=== PATIENT | female | born 2000 | race Caucasian/White ===

== ENCOUNTER 2019-08-21 11:59 | Emergency (ER) | payer OTHER ==
[2019-08-21 12:05] VITALS: BP 151/73
--- NOTE | 2019-08-21 12:07 | ER Document Report ---
ED Medical Screen (RME) - General Chief Complaint: Breast Injury Stated Complaint: RIGHT BREAST INJURY Time Seen by Provider: 08/21/19 12:06 - HPI Notes: 08/21/19 12:07 Patient is a 19-year-old female who presents complaining of right nipple ring getting caught in the shower and getting partially stuck inside of the nipple. I have treated and performed a rapid initial assessment of this patient. A comprehensive ED assessment and evaluation of the patient, analysis of test results and completion of medical decision making process will be conducted by additional ED providers. PHYSICAL EXAMINATION: GENERAL: Well-appearing, well-nourished and in no acute distress. A&Ox4. Answers questions appropriately. - Related Data Allergies/Adverse Reactions: No Known Allergies Allergy (Verified 08/21/19 12:05) Physical Exam - Vital signs Vitals: Temp Pulse Resp BP Pulse Ox 98.7 F 105 H 18 151/73 H 100 08/21/19 12:04 08/21/19 12:04 08/21/19 12:04 08/21/19 12:04 08/21/19 12:04 Course - Vital Signs Vital signs: Temp Pulse Resp BP Pulse Ox 98.7 F 105 H 18 151/73 H 100 08/21/19 12:04 08/21/19 12:04 08/21/19 12:04 08/21/19 12:04 08/21/19 12:04
--- NOTE | 2019-08-21 13:14 | ER Document Report ---
HPI - HPI Patient complains to provider of: Nipple injury Time Seen by Provider: 08/21/19 12:06 Onset: This morning Onset/Duration: Sudden Quality of pain: Achy Pain Level: 1 Context: Patient states that she was attempting to get out of the shower and close the door when her nipple piercing got caught. Patient states that the barbell is pulled mostly through the right nipple. Patient states she has had the piercings for over a year. Associated Symptoms: Other - Right nipple injury Exacerbated by: Denies Relieved by: Denies Similar symptoms previously: No Recently seen / treated by doctor: No - ROS ROS below otherwise negative: Yes Systems Reviewed and Negative: Yes All other systems reviewed and negative - CONSTITUTIONAL Constitutional: DENIES: Fever, Chills - GASTROINTESTINAL Gastrointestinal: REPORTS: Nausea - DERM Skin Color: Normal Notes: Barbell piercing pulled almost completely through right nipple. Past Medical History - General Information source: Patient - Social History Smoking Status: Never Smoker Frequency of alcohol use: None Drug Abuse: None Lives with: Spouse/Significant other Family History: Reviewed & Not Pertinent Patient has suicidal ideation: No Patient has homicidal ideation: No - Medical History Medical History: Other - Blood clotting disorder Past Surgical History: Reports: Hx Myringotomy Vertical Provider Document - CONSTITUTIONAL Agree With Documented VS: Yes Exam Limitations: No Limitations General Appearance: WD/WN, No Apparent Distress - HEENT HEENT: Atraumatic, Normocephalic - NECK Neck: Normal Inspection - RESPIRATORY Respiratory: No Respiratory Distress - MUSCULOSKELETAL/EXTREMETIES Musculoskeletal/Extremeties: MAEW - NEURO Level of Consciousness: Awake, Alert, Appropriate Motor/Sensory: No Motor Deficit - DERM Integumentary: Warm, Dry Notes: Patient with barbell nipple piercing partially pulled through the nipple. Small amount of blood noted on either side of piercing Course - Re-evaluation Re-evalutation: 08/21/19 13:11 After 0.2 mL's of lidocaine were injected into the piercing, piercing was gently pushed back through the opening. Patient tolerated well. Piercing was then removed by twisting of the ends of the barbell off. - Vital Signs Vital signs: Temp Pulse Resp BP Pulse Ox 98.7 F 105 H 18 151/73 H 100 08/21/19 12:04 08/21/19 12:04 08/21/19 12:04 08/21/19 12:04 08/21/19 12:04 Discharge - Discharge Clinical Impression: nipple piercing injury, Subcutaneous foreign body removed Condition: Stable Disposition: HOME, SELF-CARE Instructions: Cephalexin ([facility]), Removal of Subcutaneous Foreign Object ([facility]) Additional Instructions: Return immediately for any new or worsening symptoms Followup with your primary care provider, call tomorrow to make a followup appointment Keep wound clean and dry Prescriptions: Cephalexin Monohydrate [Keflex 500 mg Capsule] 500 mg PO Q6H 5 Days capsule Referrals: KELLIE BARRON MD [ACTIVE STAFF] - Follow up as needed
== END 2019-08-21 13:26 | disposition home or self-care (01) ==
LOC: ER 11:59
DX: S20.101A Unspecified superficial injuries of breast, right breast, initial encounter (principal); X58.XXXA Exposure to other specified factors, initial encounter
CPT/HCPCS: 99283

== ENCOUNTER 2019-12-16 10:43 | Emergency (ER) | payer OTHER ==
[2019-12-16 11:04] VITALS: BP 129/71
[2019-12-16] MEDS ORDERED: DEXAMETHASONE 4 MG TABLET PO ONE (12:00)
--- NOTE | 2019-12-16 12:03 | ER Document Report ---
HPI - HPI Time Seen by Provider: 12/16/19 11:54 Pain Level: 5 Context: CHIEF COMPLAINT: Sore throat HPI: 19-year-old female who is 11 weeks presenting for continued sore throat over the last several days. No definite fevers. Patient went to an urgent care 3 days ago was diagnosed with strep throat. Patient was placed on Augmentin. Patient states the throat felt a little worse today it is uncomfortable across the entire throat. She did not go back to the urgent care or call her [employer] HEL[employer]. Decided to come to the emergency department for evaluation. No voice change. No abdominal pain. ROS: See HPI - all other systems were reviewed and are otherwise negative Constitutional: no fever Eyes: no drainage, no blurred vision ENT: no runny nose, positive sore throat Cardiovascular: no chest pain Resp: no SOB, no cough GI: no vomiting, no diarrhea, no abdominal pain : no dysuria Integumentary: no rash Allergy: no hives Musculoskeletal: no extremity pain or swelling Neurological: no numbness/tingling, no weakness MEDICATIONS: I agree with the patient medications as charted by the RN. ALLERGIES: I agree with the allergies as charted by the RN. PAST MEDICAL HISTORY/PAST SURGICAL HISTORY: Reviewed and agree as charted by RN. SOCIAL HISTORY: Reviewed and agree as charted by RN. FAMILY HISTORY: No significant familial comorbid conditions directly related to patient complaint EXAM: Reviewed vital signs as charted by RN. CONSTITUTIONAL: Alert and oriented and responds appropriately to questions. Well-appearing; well-nourished, no acute distress HEAD: Normocephalic; atraumatic EYES: PERRL; Conjunctivae clear, sclerae non-icteric ENT: normal nose; no rhinorrhea; moist mucous membranes; moderate pharyngeal erythema, no uvula edema or deviation, positive bilateral tonsillar hypertrophy, phonation normal. No visible soft palate swelling NECK: Supple without meningismus; non-tender; positive cervical lymphadenopathy, no masses CARD: RRR; no murmurs, no clicks, no rubs, no gallops; symmetric distal pulses RESP: Normal chest excursion without splinting or tachypnea; breath sounds clear and equal bilaterally; no wheezes, no rhonchi, no rales, pulse oximetry ABD/GI: Normal bowel sounds; non-distended; soft, non-tender, no rebound, no guarding; no palpable organomegaly or masses. BACK: The back appears normal and is non-tender to palpation, there is no CVA tenderness EXT: Normal ROM in all joints; non-tender to palpation; no cyanosis, no effusions, no edema SKIN: Normal color for age and race; warm; dry; good turgor; no acute lesions noted NEURO: Moves all extremities equally; Motor and sensory function intact PSYCH: The patient's mood and manner are appropriate. Grooming and personal hygiene are appropriate. MDM: 19-year-old female 11 weeks with positive strep test 3 days ago on Augmentin. She does have bilateral tonsillar hypertrophy with exudate. She states she had strep throat and Geovanna as well treated with amoxicillin. She has no visible signs of peritonsillar abscess. Phonation is normal she is afebrile and not tachycardic. We will give a dose of Decadron here. Will check patient for mononucleosis - EENT EENT: REPORTS: Sore Throat - REPRODUCTIVE Reproductive: REPORTS: : Past Medical History - Social History Smoking Status: Never Smoker Chew tobacco use (# tins/day): No Frequency of alcohol use: None Drug Abuse: None Family History: Reviewed & Not Pertinent Patient has suicidal ideation: No Patient has homicidal ideation: No Past Surgical History: Reports: Hx Myringotomy Vertical Provider Document - INFECTION CONTROL TRAVEL OUTSIDE OF THE [place] IN LAST 30 DAYS: No Course - Re-evaluation Re-evalutation: 12/16/19 12:57 Patient is positive for mononucleosis. Will switch patient to Zithromax from Augmentin so she does not develop a rash. Symptomatic treatment follow-up with her [employer] - Vital Signs Vital signs: Temp Pulse Resp BP Pulse Ox 98.5 F 99 16 129/71 H 99 12/16/19 11:02 12/16/19 11:02 12/16/19 11:02 12/16/19 11:02 12/16/19 11:02 Discharge - Discharge Clinical Impression: Mononucleosis Qualifiers: Infectious mononucleosis etiology: unspecified organism Infectious mononucleosis complication: without complication Qualified Code(s): B27.90 - Infectious mononucleosis, unspecified without complication Pharyngitis Qualifiers: Pharyngitis/tonsillitis etiology: unspecified etiology Qualified Code(s): J02.9 - Acute pharyngitis, unspecified Condition: Stable Disposition: HOME, SELF-CARE Additional Instructions: Stop the Augmentin, start the Zithromax. Follow-up with your [employer]PER[employer] HELPER for further evaluation and treatment call for appointment Prescriptions: Azithromycin [Zithromax 250 mg Tablet] 250 mg PO ASDIR PRN #6 tablet PRN Reason:
== END 2019-12-16 13:12 | disposition home or self-care (01) ==
LOC: ER 10:43
DX: O26.891 Other specified pregnancy related conditions, first trimester (principal); B27.90 Infectious mononucleosis, unspecified without complication; J02.9 Acute pharyngitis, unspecified; Z3A.11 11 weeks gestation of pregnancy
CPT/HCPCS: 36415; 86308; J8540

== ENCOUNTER 2020-02-08 18:25 | Emergency (ER) | payer OTHER ==
[2020-02-08 18:31] VITALS: BP 153/74
--- NOTE | 2020-02-08 18:54 | ER Document Report ---
HPI - HPI Time Seen by Provider: 02/08/20 18:39 Pain Level: 5 Context: Patient is a 19 year old who presents emergency department with a chief complaint of bilateral leg swelling, redness, and pain. Patient states that she is allergic to sunscreen and 2 days ago she went walking outside and got sunburned. She has been using aloe, elevating her legs, but has not had relief of her symptoms. She has also been placing ice to her zheng. She is currently . - CONSTITUTIONAL Constitutional: DENIES: Fever, Chills - NEURO Neurology: DENIES: Headache, Weakness, Vision blurred, Dizzinesss / Vertigo - CARDIOVASCULAR Cardiovascular: DENIES: Chest pain - RESPIRATORY Respiratory: DENIES: Coughing - GASTROINTESTINAL Gastrointestinal: DENIES: Abdominal Pain, Nausea, Patient vomiting - REPRODUCTIVE Reproductive: REPORTS: : - MUSCULOSKELETAL Musculoskeletal: REPORTS: Extremity pain - Bilateral lower extremities, Swelling - Bilateral lower extremities - DERM Skin Color: Normal, Erythema - Bilateral lower extremities and right upper extremities Skin Problems: Blister - Left lower extremity Past Medical History - General Information source: Patient - Social History Smoking Status: Former Smoker Family History: Reviewed & Not Pertinent Patient has suicidal ideation: No Patient has homicidal ideation: No Past Surgical History: Reports: Hx Myringotomy Vertical Provider Document - CONSTITUTIONAL Agree With Documented VS: Yes Exam Limitations: No Limitations General Appearance: No Apparent Distress - INFECTION CONTROL TRAVEL OUTSIDE OF THE [place] IN LAST 30 DAYS: No - HEENT HEENT: Atraumatic, Normocephalic, PERRLA - RESPIRATORY Respiratory: Breath Sounds Normal, No Respiratory Distress - CARDIOVASCULAR Cardiovascular: Regular Rate, Regular Rhythm Pulses: Normal: Radial, Posterior tibial, Dorsalis pedis - MUSCULOSKELETAL/EXTREMETIES Musculoskeletal/Extremeties: FROM, Tender - Bilateral anterior lower extremities, Edema - Bilateral lower extremities - NEURO Level of Consciousness: Awake, Alert, Appropriate Motor/Sensory: No Motor Deficit, No Sensory Deficit - DERM Integumentary: Warm, Dry, Rash - zheng to bilateral anterior legs Course - Re-evaluation Re-evalutation: 02/08/20 18:46 Patient presents with symptoms most consistent with an acute cellulitis. Vitals within normal limits. Patient does not meet sepsis criteria is overall very well in appearance. Exam and history are not consistent with DVT. Patient will be started on coverage for both staph and strep. At this time will discharge with return precautions and follow-up recommendations. Verbal discharge instructions given a the bedside and opportunity for questions given. Medication warnings reviewed. Patient is in agreement with this plan and has verbalized understanding of return precautions and the need for primary care follow-up in the next 24-72 hours. - Vital Signs Vital signs: Temp Pulse Resp BP Pulse Ox 98.2 F 115 H 16 153/74 H 100 02/08/20 18:29 02/08/20 18:29 02/08/20 18:29 02/08/20 18:29 02/08/20 18:29 Discharge - Discharge Clinical Impression: Burn Cellulitis Qualifiers: Site of cellulitis: extremity Site of cellulitis of extremity: lower extremity Laterality: unspecified laterality Qualified Code(s): L03.119 - Cellulitis of unspecified part of limb Condition: Stable Disposition: HOME, SELF-CARE Instructions: Zheng ([facility]), Silvadene Cream ([facility]) Additional Instructions: You were seen today in the emergency department for zheng to your legs and arms. Please apply the burn cream as directed. Take antibiotics as directed. Follow-up with your primary care provider. Prescriptions: Fluconazole [Diflucan 100 Mg Tablet] 200 mg PO ONCE PRN #2 tablet PRN Reason: Cephalexin Monohydrate [Keflex 500 mg Capsule] 500 mg PO Q6H 7 Days #28 capsule Silver Sulfadiazine [Silvadene 1% Cream 400 gm] 1 applic TP BID #1 jar Referrals: MELYSSA STAFFORD MD [Primary Care Provider] - Follow up in 1 week
== END 2020-02-08 18:56 | disposition home or self-care (01) ==
LOC: ER 18:25
DX: O99.719 Diseases of the skin and subcutaneous tissue complicating pregnancy, unspecified trimester (principal); L03.119 Cellulitis of unspecified part of limb; L55.9 Sunburn, unspecified; Z87.891 Personal history of nicotine dependence; Z3A.00 Weeks of gestation of pregnancy not specified
CPT/HCPCS: 99283